=== PATIENT | female | born 1935 | race Caucasian/White ===

== ENCOUNTER → 2016-03-26 09:49 | Outpatient (CLI) | payer MEDICARE, BC ==
[2015-09-30 08:14] VITALS: BMI 27.9
[~2016-03-26 09:49] MED LIST: AMBIEN10 MG PO; APRISO0.375 GM PO; BYDUREON INJ; COZAAR100 MG PO; ELAVIL10 MG PO; GLIMEPIRIDE2 MG PO; GLUCOPHAGE1000 MG PO; IMIPRAMINE10 MG PO; LANTUS INSULIN10 ML; NORVASC10 MG PO; OMEPRAZOLE40 MG PO; PREVACID SOLUTA30 MG PO; TOPROL XL200 MG PO; TRIGLIDE160 MG PO; VITAMIN B-121000 MCG PO; VITAMIN D31000 UNI2 PO
[2016-03-26 10:35] LABS: BASOPHILS 0.5 % (0.0-2.0); HEMOGLOBIN 10.7 g/dL (12-16); IMMATURE GRANULOCYTES 0.3 % (0-5); LYMPHOCYTES 20.9 % (15-50); MCH 27.4 pg (26.0-34.0); MCHC 30.6 g/dL (31.0-37.0); MCV 89.7 fL (80.0-100.0); MEAN PLATELET VOLUME 10.9 fL (7.4-10.4); MONOCYTES 11.4 % (2-11); NEUTROPHILS 62.9 % (40-80); PLATELET COUNT 298 10x3/uL (130-400); RDW 13.7 % (11.5-14.5); WBC 10.2 10x3/uL (4.8-10.8)
[2016-03-26 10:47] LABS: % SATURATION 17 % (15-55); IRON 68 ug/dl (35-150); TOTAL IRON BIND CAPACITY 383 ug/dl (260-445); UNSAT IRON BIND CAPACITY 315 ug/dl (150-375)
== END | disposition home or self-care (01) ==
LOC: D.LAB 08:00
PROVIDERS: Internal Medicine Gastroenterology
DX: K50.90 Crohn's disease, unspecified, without complications (principal); D50.9 Iron deficiency anemia, unspecified

== ENCOUNTER → 2018-04-18 11:59 | Outpatient (CLI) | payer MEDICARE, BC ==
[2015-09-30 08:14] VITALS: BMI 27.9
[2018-04-18 12:41] LABS: BASOPHILS 0.4 % (0-2); EOSINOPHILS 3.4 % (0-7); HEMATOCRIT 37.2 % (36.0-48.0); HEMOGLOBIN 11.9 g/dL (12-16); IMMATURE GRANULOCYTES 0.4 % (0-5); LYMPHOCYTES 30.4 % (15-50); MCH 29.1 pg (26.0-34.0); MEAN PLATELET VOLUME 10.9 fL (7.4-10.4); MONOCYTES 10.3 % (2-11); NEUTROPHILS 55.1 % (40-80); PLATELET COUNT 292 10x3/uL (130-400); RBC 4.09 10x6/uL (4.00-5.40); RDW 13.9 % (11.5-14.5); WBC 8.4 10x3/uL (4.8-10.8)
[2018-04-18 13:12] LABS: % SATURATION 24 % (15-55); IRON 76 ug/dl (35-150); TOTAL IRON BIND CAPACITY 306 ug/dl (260-445); UNSAT IRON BIND CAPACITY 230 ug/dl (150-375)
== END | disposition home or self-care (01) ==
LOC: D.LAB 11:59
PROVIDERS: ATTEND Family Medicine
DX: K50.90 Crohn's disease, unspecified, without complications (principal); D50.9 Iron deficiency anemia, unspecified

== ENCOUNTER → 2018-11-18 08:52 | Outpatient (CLI) | payer MEDICARE, BC ==
[2015-09-30 08:14] VITALS: BMI 27.9
== END | disposition home or self-care (01) ==
LOC: D.US 08:52
PROVIDERS: ATTEND Nurse Practitioner Family
DX: N18.4 Chronic kidney disease, stage 4 (severe) (principal); I12.0 Hypertensive chronic kidney disease with stage 5 chronic kidney disease or end stage renal disease; K50.90 Crohn's disease, unspecified, without complications

== ENCOUNTER → 2018-12-01 09:00 | Outpatient (CLI) | payer MEDICARE, BC ==
[2015-09-30 08:14] VITALS: BMI 27.9
[2018-12-01 09:48] LABS: APPEARANCE CLOUDY (CLEAR); COLOR YELLOW (YELLOW); NITRITE POSITIVE (NEGATIVE); SPECIFIC GRAVITY 1.015 (1.005-1.020)
[2018-12-01 09:49] LABS: BACTERIA MANY /hpf (NEGATIVE); BILIRUBIN NEGATIVE (NEGATIVE); EPITHELIAL CELLS OCC /hpf (0-5); GLUCOSE NEGATIVE (NEGATIVE); KETONE NEGATIVE (NEGATIVE); PROTEIN 2+ mg/dL (NEGATIVE); RED CELLS - URINE 0-5 /hpf (0-5); UROBILINOGEN NORMAL (NORMAL); WHITE CELLS - URINE >50 /hpf (NEGATIVE)
[2018-12-02 15:09] LABS: IMMUNOFIXATION Note: (()); IMMUNOFIXATION - URINE Note: (()); IMMUNOGLOBULIN A 202 mg/dL (64-422); IMMUNOGLOBULIN G 884 mg/dL (700-1600); IMMUNOGLOBULIN M 365 mg/dL (26-217)
[2018-12-04 16:08] LABS: ANCA - ANTIMYELOPEROXIDASE <9.0 U/mL (0.0-9.0); ANCA - ANTIPROTEINASE 3 <3.5 U/mL (0.0-3.5); ANCA - ATYPICAL <1:20 titer (Neg:<1:20); ANCA - CYTOPLASMIC <1:20 titer (Neg:<1:20); ANCA - PERINUCLEAR <1:20 titer (Neg:<1:20)
== END | disposition home or self-care (01) ==
LOC: D.LAB 09:00
PROVIDERS: ATTEND Nurse Practitioner Family
DX: R80.9 Proteinuria, unspecified (principal); I12.9 Hypertensive chronic kidney disease with stage 1 through stage 4 chronic kidney disease, or unspecified chronic kidney disease; N18.4 Chronic kidney disease, stage 4 (severe)